=== PATIENT | male | born 1960 | race Caucasian/White ===

== ENCOUNTER 2016-07-31 04:01 | Observation (INO) | payer BC ==
[2016-07-31] MEDS ORDERED: DILTIAZEM HCL/D5W 125 ML IV PRN ×3 (04:21→07:39)
[2016-07-31] MEDS ORDERED: DILTIAZEM HCL INJ 25 MG/5 ML VIAL IV ONE ×2 (04:21→05:02)
--- NOTE | 2016-07-31 04:23 | ER Document Report ---
ED General - General Chief Complaint: Palpitations Stated Complaint: PALPITATIONS Notes: Patient is a 56-year-old male presents with plan to a history of atrial fibrillation. Patient is a previous history of A. fib. She says he's been out of it several times over last several months. Last time he was in A. fib was in June. He says that they gave him Lopressor: A resolved. He is currently not on any blood thinners other than aspirin. He scheduled to see Dr. Hayes, engineering technology instructor physiologists, in [place] next week. No recent fevers. No infections. No chest pain. No shortness of breath. He said he began to feel his heart beat irregularly around midnight. No other complaints at this time. He took 25 mg of metoprolol at 3 AM prior to coming in. TRAVEL OUTSIDE OF THE [place] IN LAST 30 DAYS: No - Related Data Allergies/Adverse Reactions: No Known Allergies Allergy (Verified 07/31/16 04:05) Past Medical History - Social History Smoking Status: Never Smoker Chew tobacco use (# tins/day): No Frequency of alcohol use: None Drug Abuse: None Family History: Reviewed & Not Pertinent Patient has suicidal ideation: No Patient has homicidal ideation: No - Past Medical History Cardiac Medical History: Reports: Hx Atrial Fibrillation, Hx Hypercholesterolemia, Hx Hypertension Endocrine Medical History: Denies: Hx Diabetes Mellitus Type 1, Hx Diabetes Mellitus Type 2 Renal/ Medical History: Denies: Hx Peritoneal Dialysis Malignancy Medical History: Reports Hx Skin Cancer - Immunizations Hx Diphtheria, Pertussis, Tetanus Vaccination: Yes - 3 years ago Review of Systems - Review of Systems Notes: My Normal Review Basic REVIEW OF SYSTEMS: CONSTITUTIONAL : Denies fever, chills, or sweats. Denies recent illness. EENT: Denies eye, ear, throat, or mouth pain or symptoms. Denies nasal or sinus congestion. CARDIOVASCULAR: Denies chest pain. Has palpitations RESPIRATORY: Denies cough, cold, or chest congestion. Denies shortness of breath, difficulty breathing, or wheezing. GASTROINTESTINAL: Denies abdominal pain. Denies nausea, vomiting, or diarrhea. Denies constipation. Last BM: MUSCULOSKELETAL: Denies neck or back pain or joint pain or swelling. SKIN: Denies rash or skin lesions. NEUROLOGICAL: Denies altered mental status or loss of consciousness. Denies headache. Denies weakness or paralysis or loss of use of either side. Denies problems with gait or speech. Denies sensory or motor loss. ALL OTHER SYSTEMS REVIEWED AND NEGATIVE. Physical Exam - Vital signs Vitals: Temp Pulse Resp BP Pulse Ox 98.2 F 103 H 16 134/92 H 97 07/31/16 04:07 07/31/16 04:07 07/31/16 04:07 07/31/16 04:07 07/31/16 04:07 - Notes Notes: General Appearance: Well nourished, alert, cooperative, no acute distress, no obvious discomfort. Vitals: reviewed, See vital signs table. Head: no swelling or tenderness to the head Eyes: PERRL, EOMI, Conjuctiva clear Mouth: No decreasd moisture Neck: Supple, no neck tenderness, No thyromegaly Lungs: No wheezing, No rales, No rhonci, No accessory muscle use, good air exchange bilaterally. Heart: Rapid rate, irregular rythm, No murmur, no rub Abdomen: Normal BS, soft, No rigidity, No abdominal tenderness, No guarding, no rebound, no abdominal masses, no organomegaly Extremities: strength 5/5 in all extremities, good pulses in all extremities, no swelling or tenderness in the extremities, no edema. Skin: warm, dry, appropriate color, no rash Neuro: speech clear, oriented x 3, normal affect, responds appropriately to questions. Course - Vital Signs Vital signs: Temp Pulse Resp BP Pulse Ox 98.2 F 103 H 17 138/84 H 100 07/31/16 04:07 07/31/16 04:07 07/31/16 05:45 07/31/16 05:31 07/31/16 05:45 - Laboratory Result Diagrams: 07/31/16 04:20 07/31/16 04:20 Laboratory results interpreted by me: 07/31/16 07/31/16 04:20 04:20 RBC 5.59 H BUN 22 H Creatine Kinase 54 L - EKG Interpretation by Me Additional EKG results interpreted by me: 07/31/16 04:23 EKG is reviewed and interpreted by me. EKG shows A. fib with RVR with a rate of [address] segment elevation or depression. No ischemic T wave inversions. QRS duration QTC intervals are within normal range. No old EKG available for comparison. - Transfer of Care Notes: 07/31/16 05:56 Patient has persistent A. fib with RVR. Patient had 25 mg metoprolol prior to arrival to the ER. I gave him another 2-1/2 mg IV. He then received 10 mg of Cardizem bolus followed by Cardizem drip. He then received another treatment of milligrams metoprolol. He unfortunately stools and a for ablation is still has rapid ventricular response. His rate is better controlled than when he first came in. Initially his rate was in the 140s and 50s. Currently his rate is from the low 100s to 120s. Has no chest pain. He looks well. His laboratory evaluation is unremarkable. We did attempt to call [facility] being that he is scheduled to see an joint filler there. Unfortunately [facility] no beds. I did speak with the hospitalist who agrees to admit the patient here. 07/31/16 05:58 Dictation of this chart was performed using voice recognition software; therefore, there may be some unintended grammatical errors. Discharge - Discharge Clinical Impression: Atrial fibrillation Qualifiers: Atrial fibrillation type: persistent Qualified Code(s): I48.1 - Persistent atrial fibrillation Condition: Stable Disposition: ADMITTED OBSERVATION Admitting Provider: Hospitalist Unit Admitted: Telemetry
[2016-07-31] MEDS ORDERED: METOPROLOL TARTRATE PF/INJ 5 MG/5 ML SDV IV ONE ×4 (04:29→07:17)
[2016-07-31 04:58] LABS: ABSOLUTE EOSINOPHILS # (AUTO) 0.1 10^3/uL (0.0-0.6); ABSOLUTE LYMPHOCYTES (AUTO) 1.4 10^3/uL (0.5-4.7); ABSOLUTE MONOCYTES (AUTO) 0.8 10^3/uL (0.1-1.4); ABSOLUTE NEUT (AUTO) 8.1 10^3/uL (1.7-8.2); BASOPHILS % (AUTO) 0.5 % (0-2); EOSINOPHILS % (AUTO) 1.2 % (0-6); HEMATOCRIT 49.1 % (37.9-51.0); HEMOGLOBIN 16.1 g/dL (13.5-17.0); HGB HCT DIFFERENCE -0.8; LYMPHOCYTES % (AUTO) 13.1 % (13-45); MEAN CORPUSCULAR HEMOGLOBIN 28.8 pg (27.0-33.4); MEAN CORPUSCULAR HGB CONC 32.7 g/dL (32.0-36.0); MEAN CORPUSCULAR VOLUME 88 fl (80-97); MONOCYTES % (AUTO) 8.1 % (3-13); RED BLOOD COUNT 5.59 10^6/uL (4.35-5.55); RED CELL DISTRIBUTION WIDTH 12.9 % (11.5-14.0); SEGMENTED NEUTROPHILS % (AUTO) 77.1 % (42-78); WHITE BLOOD COUNT 10.5 10^3/uL (4.0-10.5)
[2016-07-31] MEDS ORDERED: DILTIAZEM HCL/D5W 125 MG/125 ML RTUINJ IV ONE (05:03)
[2016-07-31] MEDS ORDERED: DILTIAZEM HCL INJ 25 MG/5 ML VIAL ONE (05:04)
[2016-07-31 05:27] LABS: CREATINE KINASE MB 0.39 ng/mL (<4.55)
[2016-07-31 05:28] LABS: ALANINE AMINOTRANSFERASE 34 U/L (21-72); ALBUMIN 4.5 g/dL (3.5-5.0); ALKALINE PHOSPHATASE 80 U/L (38-126); ANION GAP 12 (5-19); ASPARTATE AMINO TRANSFERASE 21 U/L (17-59); BILIRUBIN,TOTAL 0.6 mg/dL (0.2-1.3); BLOOD UREA NITROGEN 22 mg/dL (7-20); CALCIUM 9.3 mg/dL (8.4-10.2); CARBON DIOXIDE 27 mmol/L (22-30); CHLORIDE 105 mmol/L (98-107); CREATINE KINASE 54 U/L (55-170); CREATININE RESULT 0.98 mg/dL (0.52-1.25); GLUCOSE 101 mg/dL (75-110); POTASSIUM 3.8 mmol/L (3.6-5.0); TOTAL PROTEIN 7.2 g/dL (6.3-8.2)
[2016-07-31 05:40] LABS: TROPONIN I < 0.012 ng/mL
[2016-07-31] MEDS ORDERED: ENOXAPARIN SODIUM INJ 100 MG/1 ML DISP.SYRIN SUBCUT SCH (06:00)
[2016-07-31] MEDS ORDERED: ACETAMINOPHEN 325 MG TABLET PO PRN (06:11)
[2016-07-31] MEDS ORDERED: METOPROLOL TARTRATE PF/INJ 5 MG/5 ML SDV IV PRN (06:11)
[2016-07-31] MEDS ORDERED: DOCUSATE SODIUM 100 MG CAPSULE PO SCH (10:00)
[2016-07-31] MEDS ORDERED: DOCUSATE SODIUM 100 MG/10 ML UDC PO SCH (10:00)
[2016-07-31 11:13] LABS: APPEARANCE,URINE CLEAR; BILIRUBIN,URINE NEGATIVE (NEGATIVE); GLUCOSE, URINE NEGATIVE (NEGATIVE); KETONES,URINE NEGATIVE (NEGATIVE); LEUKOCYTE ESTERASE,URINE NEGATIVE (NEGATIVE); NITRITE,URINE NEGATIVE (NEGATIVE); PROTEIN,URINE NEGATIVE (NEGATIVE); URINE SPECIFIC GRAVITY 1.005; UROBILINOGEN,URINE NEGATIVE mg/dL (<2.0)
[2016-07-31] MEDS ORDERED: DILTIAZEM HCL 240 MG CAPSULE.CR PO ONE (12:00)
[2016-07-31] MEDS ORDERED: APIXABAN 5 MG TABLET PO ONE (12:30)
[2016-07-31] MEDS ORDERED: METOPROLOL TARTRATE 25 MG TABLET PO ONE (14:00)
[2016-07-31 14:04] VITALS: BP 114/77
--- NOTE | 2016-07-31 15:50 | EKG REPORT ---
SEVERITY:- ABNORMAL ECG - ATRIAL FIBRILLATION VENTRICULAR PREMATURE COMPLEX : Confirmed by: Melodie Cleveland 31-Jul-2016 15:49:38
[2016-07-31] MEDS ORDERED: METOPROLOL TARTRATE 25 MG TABLET PO SCH (18:00)
[2016-07-31] MEDS ORDERED: APIXABAN 5 MG TABLET PO SCH (22:00)
[2016-08-01] MEDS ORDERED: METOPROLOL TARTRATE 25 MG TABLET PO SCH (10:00)
--- NOTE | 2016-08-03 14:31 | PDOC DISCHARGE SUMMARY ---
General - Admit/Disc Date/PCP Admission Date/Primary Care Provider: 07/31/16 06:11 EDOUARD ANGLIN Discharge Date: 08/01/16 - Discharge Diagnosis (2) Essential (primary) hypertension Is this a current diagnosis for this admission?: YesSummary: Metoprolol increased to 25 mg bid - Additional Information Resuscitation Status: Full Code Discharge Diet: Regular Discharge Activity: Activity As Tolerated, Balance Activity w/Rest Home Medications: Apixaban [Eliquis 5 mg Tablet] 5 mg PO Q12 #60 tablet 07/31/16 Diltiazem HCl [Diltiazem 24Hr Cd] 240 mg PO DAILY #30 tab 07/31/16 Metoprolol Tartrate [Lopressor 25 mg Tablet] 25 mg PO BID #60 tablet 07/31/16 History of Present Illness History of Present Illness: CHAMP LUX JR is a 56 year old male with history of paroxymal atrial fibrillation presents to [facility] ED with complaints of palpitations. He was found to be in a rapid atrial fibrillation with RVR, HR of 160's. He was treated with IV Diltiazem by ED provider for rate control. Labwork was unremarkable. He was asymptomatic. He was referred to hospitalist's service for admission. Hospital Course Hospital Course: The patient was admitted to the hospitalist service on observation. He had serial troponins that were all unremarkable. He remained asymptomatic. He was started on Eliquis for anticougulation. He had his rate controlled with po Diltiazem. He wished to be discharged. He has follow up appointment with Dr Hayes in [place] on for an electrophysiology appointment. He was counseled on Eliquis therapy. Physical Exam Vital Signs: Temp Pulse Resp BP Pulse Ox 98.9 F 103 H 20 114/77 99 07/31/16 14:32 07/31/16 04:07 07/31/16 14:00 07/31/16 14:00 07/31/16 14:00 General appearance: PRESENT: no acute distress, well-developed, well-nourished Head exam: PRESENT: atraumatic, normocephalic Eye exam: PRESENT: conjunctiva pink, EOMI, PERRLA. ABSENT: scleral icterus Ear exam: PRESENT: normal external ear exam Mouth exam: PRESENT: moist, tongue midline Neck exam: ABSENT: carotid bruit, JVD, lymphadenopathy, thyromegaly Respiratory exam: PRESENT: clear to auscultation dolly. ABSENT: rales, rhonchi, wheezes Cardiovascular exam: PRESENT: irregular rhythm, +S1, +S2 Pulses: PRESENT: normal dorsalis pedis pul Vascular exam: PRESENT: normal capillary refill GI/Abdominal exam: PRESENT: normal bowel sounds, soft. ABSENT: distended, guarding, mass, organolmegaly, rebound, tenderness Rectal exam: PRESENT: deferred Extremities exam: PRESENT: full ROM. ABSENT: calf tenderness, clubbing, pedal edema Neurological exam: PRESENT: alert, awake, oriented to person, oriented to place , oriented to time, oriented to situation, CN II-XII grossly intact. ABSENT: motor sensory deficit Psychiatric exam: PRESENT: appropriate affect, normal mood. ABSENT: homicidal ideation, suicidal ideation Skin exam: PRESENT: dry, intact, warm. ABSENT: cyanosis, rash Results Laboratory Results: 07/31/16 10:50 Troponin I < 0.012 Impressions: Chest X-Ray 07/31/16 04:21 IMPRESSION: No acute cardiopulmonary findings. Qualifiers PATEINT BEING DISCHARGED WITH ANY OF THE FOLLOWING DIAGNOSIS?: No Plan Discharge Plan: Home with family. Follow up with cardiology electrophysiology on Time Spent: Less than 30 Minutes
--- NOTE | 2016-08-08 18:56 | PDOC H&P ---
History of Present Illness Admission Date/PCP: 07/31/16 06:06 EDOUARD ANGLIN Patient complains of: Palpitations History of Present Illness: CHAMP LUX JR is a 56 year old male with a two-year history of paroxysmal atrial fibrillation who been in his usual state of health until 4 hours prior to presentation having 2 episodes of palpitations which lasted several minutes and resolved then a third prompting to seek evaluation emergency room where his found to be in A. fib with RVR in the 160s. He is without chest pain nausea vomiting or shortness of breath. He took 25 mg of Lopressor prior to presentation he received an additional 5 mg IV and currently on Cardizem at 15 mg per hour with A. fib in the 120s. And referred to the hospitalist for admission. He denies any recent change in medications or missing doses further denying [id number] medications, caffeine or alcohol. He has a scheduled visit to biology specialist Dr. Hayes at [facility] August 03. Past Medical History Cardiac Medical History: Reports: Atrial Fibrillation, Hyperlipidema, Hypertension Endocrine Medical History: Denies: Diabetes Mellitus Type 1, Diabetes Mellitus Type 2 Malignancy Medical History: Reports: Skin Cancer Past Surgical History Past Surgical History: Reports: Other - Resection of malignant melanoma to the right neck 18 years ago without recu Social History Information Source: Patient, Relative Lives with: Family Smoking Status: Never Smoker Frequency of Alcohol Use: None Hx Recreational Drug Use: No Drugs: None - Advance Directive Resuscitation Status: Full Code Family History Family History: CAD, Hypertension Parental Family History Reviewed: Yes Children Family History Reviewed: Yes Sibling(s) Family History Reviewed.: Yes Medication/Allergy Home Medications: Candesartan/Hydrochlorothiazid [Atacand Hct 32-12.5 Mg Tab] 1 each PO AC Metoclopramide HCl [Reglan 10 mg Tablet] 1 - 2 tab PO Q6HP PRN #15 tablet Ondansetron [Zofran Odt 4 mg Tablet] 1 - 2 tab PO Q4H PRN #15 tab.rapdis Docusate Sodium [Colace 100 mg Capsule] 100 mg PO BID #60 capsule 12/05/15 Allergies/Adverse Reactions: No Known Allergies Allergy (Verified 07/31/16 04:05) Review of Systems Constitutional: ABSENT: chills, fever(s), headache(s), weight gain, weight loss Eyes: ABSENT: visual disturbances Ears: ABSENT: hearing changes Cardiovascular: ABSENT: chest pain, dyspnea on exertion, edema, orthropnea, palpitations Respiratory: ABSENT: cough, hemoptysis Gastrointestinal: ABSENT: abdominal pain, constipation, diarrhea, hematemesis, hematochezia, nausea, vomiting Genitourinary: ABSENT: dysuria, hematuria Musculoskeletal: ABSENT: joint swelling Integumentary: ABSENT: rash, wounds Neurological: ABSENT: abnormal gait, abnormal speech, confusion, dizziness, focal weakness, syncope Psychiatric: ABSENT: anxiety, depression, homidical ideation, suicidal ideation Endocrine: ABSENT: cold intolerance, heat intolerance, polydipsia, polyuria Hematologic/Lymphatic: ABSENT: easy bleeding, easy bruising Physical Exam Vital Signs: Temp Pulse Resp BP Pulse Ox 98.2 F 103 H 19 114/91 H 100 07/31/16 04:07 07/31/16 04:07 07/31/16 06:01 07/31/16 06:01 07/31/16 06:01 General appearance: PRESENT: no acute distress, well-developed, well-nourished Head exam: PRESENT: atraumatic, normocephalic Eye exam: PRESENT: conjunctiva pink, EOMI, PERRLA. ABSENT: scleral icterus Ear exam: PRESENT: normal external ear exam Mouth exam: PRESENT: moist, tongue midline Neck exam: ABSENT: carotid bruit, JVD, lymphadenopathy, thyromegaly Respiratory exam: PRESENT: clear to auscultation dolly. ABSENT: rales, rhonchi, wheezes Cardiovascular exam: PRESENT: irregular rhythm, +S1. ABSENT: diastolic murmur, rubs, systolic murmur Pulses: PRESENT: normal dorsalis pedis pul Vascular exam: PRESENT: normal capillary refill GI/Abdominal exam: PRESENT: normal bowel sounds, soft. ABSENT: distended, guarding, mass, organolmegaly, rebound, tenderness Rectal exam: PRESENT: deferred Extremities exam: PRESENT: full ROM. ABSENT: calf tenderness, clubbing, pedal edema Neurological exam: PRESENT: alert, awake, oriented to person, oriented to place , oriented to time, oriented to situation, CN II-XII grossly intact. ABSENT: motor sensory deficit Psychiatric exam: PRESENT: appropriate affect, normal mood. ABSENT: homicidal ideation, suicidal ideation Skin exam: PRESENT: dry, intact, warm. ABSENT: cyanosis, rash Results Impressions: Chest X-Ray 07/31/16 04:21 IMPRESSION: No acute cardiopulmonary findings. Assessment & Plan - Diagnosis (1) Atrial fibrillation Qualifiers: Atrial fibrillation type: persistent Qualified Code(s): I48.1 - Persistent atrial fibrillation Plan: A. fib with RVR with improved control on IV Cardizem he'll receive Lopressor IV when necessary heart rate greater than 110. And full dose Lovenox anticoagulation with consideration of cardiology consultation. Patient was considered for transfer to [facility] given planned EP evaluation with Dr. Hayes on August 03 however the facility has no beds currently available - Time Time Spent: 30 to 50 Minutes
== END 2016-07-31 14:34 | disposition home or self-care (01) ==
LOC: ER 04:01 → EH 06:06 → UNDOADMOB 06:06 → EH 06:11
PROVIDERS: ADMIT Internal Medicine; ATTEND Internal Medicine
DX: I48.0 Paroxysmal atrial fibrillation (principal); I10 Essential (primary) hypertension; Z79.01 Long term (current) use of anticoagulants; E78.5 Hyperlipidemia, unspecified; Z82.49 Family history of ischemic heart disease and other diseases of the circulatory system
CPT/HCPCS: 93005; 96376; 99285; 96372; 96375; 96365; 96366; 36415; 82553; 82550; 83735; 85025; 80053; 81001; 84484; 71010; 93010; G0378; J3490 ×3; J1650

== ENCOUNTER → 2017-03-23 | Outpatient (CLI) | payer BC ==
--- NOTE | 2017-03-23 14:26 | RADIOLOGY REPORT (SQ) ---
EXAM DESCRIPTION: CHEST PA/LAT COMPLETED DATE/TIME: 03/23/2017 2:03 pm REASON FOR STUDY: PERSONAL HX OF MALIGNANT MELANOMA OF SKIN (Z85.820) COMPARISON: 06/17/2016 EXAM PARAMETERS: NUMBER OF VIEWS: two views TECHNIQUE: Digital Frontal and Lateral radiographic views of the chest acquired. RADIATION DOSE: NA LIMITATIONS: none FINDINGS: LUNGS AND PLEURA: No opacities, masses or pneumothorax. No pleural effusion. MEDIASTINUM AND HILAR STRUCTURES: No masses or contour abnormalities. HEART AND VASCULAR STRUCTURES: Heart normal size. No evidence for failure. BONES: No acute findings. HARDWARE: None in the chest. OTHER: No other significant finding. IMPRESSION: NO SIGNIFICANT RADIOGRAPHIC FINDING IN THE CHEST. TECHNICAL DOCUMENTATION: JOB ID: [id number] [employer]- All Rights Reserved
== END ==
LOC: RAD 13:42
PROVIDERS: ATTEND Internal Medicine Hematology & Oncology
DX: Z85.820 Personal history of malignant melanoma of skin (principal)
CPT/HCPCS: 71020

== ENCOUNTER 2017-09-18 22:54 | Emergency (ER) | payer BC ==
[2017-09-18 23:20] VITALS: BP 166/92
== END 2017-09-19 02:10 | disposition left against medical advice (07) ==
LOC: ER 22:54
DX: Z53.21 Procedure and treatment not carried out due to patient leaving prior to being seen by health care provider (principal)